=== PATIENT | female | born 1960 | race Caucasian/White ===

== ENCOUNTER → 2020-03-17 10:20 | Outpatient (BNVA) | payer SELFPAY | PROVIDERS: Family Provider Electrodiagnostic Medicine; PCP Electrodiagnostic Medicine; Referring Provider Electrodiagnostic Medicine; Visit Provider Orthopaedic Surgery | DX: M79.643 Pain in unspecified hand (principal) | CPT/HCPCS: 73140 ==

== ENCOUNTER 2020-03-18 06:04 | Day surgery (SDC) | payer SELFPAY ==
[2020-03-18 06:21] VITALS: BP 110/40; PULSE 65; RESP 18; TEMP 36.4; O2SAT 98
[2020-03-18] MEDS: sodium chloride 0.9% 1,000 ML 30 ML IV (06:30)
--- NOTE | 2020-03-18 06:39 | P.ANESASSM_ITS ---
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 Proposed Procedure: Operation Date: 03/18/20 07:00 Proposed Procedures p extensor tendon repair right index finger 62467 S56.429A(Right) - Ravinder Boo MD Social: Social History: No alcohol and No tobacco Exam: Pre-Anes Outpt Exam: alert, oriented x 3, clear to auscultation bilaterally and regular rate & rhythm Airway: Submandibular: WNL Cervical ROM: WNL MP: 2 Dentition: False (lower) and Partials (upper) History/ROS: No significant history except as noted Pulmonary: Pulmonary: None reported CV/HEM: CV/HEM: None reported : : None reported Hepatic: Hepatic: None reported GI: GI: None reported Metabolic: Metabolic: None reported Musc/skel: Musc/skel: None reported Neuropsych: Neuropsych: Anxiety Anesthetic Plan: ASA status: 2 Anesthesia: Anesthesia Evaluation, General and MAC Risk of > 500 ml blood loss (7ml/kg in children): No PFSH Anesthesia PFSH: Surgical History History of dental surgery Hx of carpal tunnel repair Hx of hysterectomy Social History Smoking and tobacco status: never smoked Alcohol intake: never Data Anesthesia Cardiac Studies: No Data to Display
[2020-03-18 08:23] VITALS: BP 112/76; PULSE 52; RESP 18; TEMP 36.4; O2SAT 94
--- NOTE | 2020-03-18 08:24 | P.OP_ITS ---
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 No foreign material or infection was Condition: stable Disposition: same day Procedure: The patient was taken to the operating room and given a [place] block by anesthesia. She was given 2 g of Ancef. A transverse incision was made over the PIP joint and extended distally and proximally from each and creating a Z- type exposure. Flaps of skin and soft tissue were elevated full-thickness bring this down to the extensor ferrera. The extensor tendon was identified just proximal to the joint retracted approximately 5 mm revealing granulation tissue was removed with a scalpel blade bringing his back to healthy tendon. The distal extensor could was identified with blunt dissection. A 3-0 Ethibond suture was passed in a Krak?w fashion through the proximal extensor tendon and ferrera and a second passed through the distal ferrera. These were secured with the finger in extension approximating the proximal tendon and extensor ferrera. The repair was then reinforced with 3-0 Vicryl suture. Skin edges were closed with 3-0 Prolene. Xeroflo gauze 4 x 4's and a radial gutter splint were applied with the wrist in extension and the digits in a functional position. The patient was taken to outpatient in stable condition.
[2020-03-18] MEDS: HYDROcodone-acetaminophen 7.5-325 mg Tablet 1 TAB PO (08:45)
[2020-03-18 08:50] VITALS: BP 116/81; PULSE 61; RESP 18; O2SAT 97
== END 2020-03-18 09:33 | disposition home or self-care (01) ==
PROVIDERS: PCP Electrodiagnostic Medicine; Visit Provider Orthopaedic Surgery
PROC: (CPT 26418; principal; 2020-03-18 07:00)
DX: S66.326A Laceration of extensor muscle, fascia and tendon of right little finger at wrist and hand level, initial encounter (principal); W26.8XXA Contact with other sharp object(s), not elsewhere classified, initial encounter
CPT/HCPCS: 26418; 12345; 96365; J0690; J1885; J2250; J2704; J3010; J3490; J7030

== ENCOUNTER 2021-01-24 12:09 | Outpatient (CLI) | payer SELFPAY ==
--- NOTE | 2021-01-24 12:18 | XRR_ITS ---
PROCEDURE INFORMATION: Exam: XR Chest Exam date and time: 01/24/2021 12:21 PM Age: 60 years old Clinical indication: Pain and injury or trauma; Fall; Blunt trauma (contusions or hematomas); Chest wall pain; Injury date: 1.5 weeks ago; Additional info: Left sided rib pain/pleural effusion/pneumothorax TECHNIQUE: Imaging protocol: XR of the chest. Views: 2 views. COMPARISON: No relevant prior studies available. FINDINGS: Lungs: There is a circumscribed noncalcified density in the left perihilar region measuring 16 mm. This finding appears to be in the posterior aspect of the chest in the paravertebral region. This finding is suspicious for a lung mass lesion. Additional evaluation with CT chest examination with intravenous contrast. Pleural spaces: Moderate volume left lower lobe pleural effusion. No pneumothorax. Heart/Mediastinum: Unremarkable. No cardiomegaly. Bones/joints: Lower dorsal spine levoscoliosis is seen. There is a mildly displaced fracture left 6 posterior rib XR/XR chest 2V* [id number] IMPRESSION: 1. Circumscribed left lung nodule possible mass CT chest recommended 2. Moderate volume left lower lobe pleural effusion 3. Dorsal spine levoscoliosis . 4. Fracture left 6 posterior rib
== END 2021-01-24 12:10 | disposition home or self-care (01) ==
LOC: RAD 12:13
PROVIDERS: PCP Electrodiagnostic Medicine; Visit Provider Electrodiagnostic Medicine
DX: R07.81 Pleurodynia (principal); J93.9 Pneumothorax, unspecified; J94.2 Hemothorax; J90 Pleural effusion, not elsewhere classified; D64.9 Anemia, unspecified; S22.32XA Fracture of one rib, left side, initial encounter for closed fracture; X58.XXXA Exposure to other specified factors, initial encounter
CPT/HCPCS: 71046

== ENCOUNTER → 2021-01-31 10:20 | Outpatient (BNVA) | payer SELFPAY | PROVIDERS: PCP Electrodiagnostic Medicine; Referring Provider Electrodiagnostic Medicine; Visit Provider Orthopaedic Surgery | DX: S32.9XXA Fracture of unspecified parts of lumbosacral spine and pelvis, initial encounter for closed fracture (principal); W19.XXXA Unspecified fall, initial encounter | CPT/HCPCS: 72170 ==

== ENCOUNTER 2021-05-03 10:53 | Outpatient (CLI) | payer SELFPAY ==
--- NOTE | 2021-05-03 10:59 | XRR_ITS ---
PROCEDURE INFORMATION: Exam: XR Chest Exam date and time: 05/03/2021 10:59 AM Age: 60 years old Clinical indication: Condition or disease; Other: Hemothorax; Patient HX: Follow up left ribs fractures, no complaints at this time TECHNIQUE: Imaging protocol: XR of the chest. Views: 2 views. COMPARISON: CR XR chest 2V* [id number] 01/24/2021 12:30 PM FINDINGS: Lungs: Unremarkable. No consolidation. Pleural spaces: Unremarkable. No pleural effusion. No pneumothorax. Heart/Mediastinum: Unremarkable. No cardiomegaly. Bones/joints: There is a healing fracture left 6 posterior rib. This finding shows periosteal new bone formation of increased since prior examination. There is also a healing fracture left 7th posterior rib. No additional rib fractures are documented. XR/XR chest 2V* [id number] IMPRESSION: 1. Healing fracture left 6, and 7th posterior rib. 2. Otherwise No acute findings.
== END 2021-05-03 10:54 | disposition home or self-care (01) ==
LOC: RAD 10:56
PROVIDERS: PCP Electrodiagnostic Medicine; Visit Provider Internal Medicine Critical Care Medicine
DX: J94.2 Hemothorax (principal); S22.42XA Multiple fractures of ribs, left side, initial encounter for closed fracture; X58.XXXA Exposure to other specified factors, initial encounter
CPT/HCPCS: 71046

== ENCOUNTER 2021-05-18 09:49 | Outpatient (CLI) | payer SELFPAY ==
--- NOTE | 2021-05-18 10:00 | CT_ITS ---
WS: [id number] LDCT LUNG CANCER SCREENING HISTORY: Nicotine Dependence TECHNIQUE: Axial imaging performed from the apices to 1 cm below the costophrenic angles. Coronal and sagittal reformats are submitted with axial MIP series. All CT scans at [facility] use at least one of these dose optimization techniques: automated exposure control; mA and/or kV adjustment per patient size (includes targeted exams where dose is matched to clinical indication); or iterativ e reconstruction. DLP: 54.58 mGy.cm DIvol: 1.58 mGy COMPARISON: None available. Diagnostic quality: Satisfactory Lung Nodules: No pulmonary nodule or mass. Pleural thickening in the posterior LEFT thorax from a rem ote healed rib fracture. No endobronchial lesions. Lungs: Mild hyperexpansion. Heart: Normal size heart. No effusion. Other findings: Normal size aorta. Small hiatal hernia. Moderate LEFT curvature lower thoracic spine. Several healed rib fractures in the posterior mid LEFT thorax. CT/CT lung screening [id number] IMPRESSION: LUNG-RADS: 1-Negative FOLLOW UP: 12 Month: Continue annual screening with LDCT OTHER FINDINGS (S MODIFIER): None.
== END 2021-05-18 09:50 | disposition home or self-care (01) ==
PROVIDERS: PCP Electrodiagnostic Medicine; Visit Provider Internal Medicine Critical Care Medicine
DX: F17.210 Nicotine dependence, cigarettes, uncomplicated (principal)
CPT/HCPCS: 71271

== ENCOUNTER 2021-07-05 09:21 | Outpatient (CLI) | payer OTHER, SELFPAY ==
--- NOTE | 2021-07-05 09:28 | MM_ITS ---
WS: [id number] DIAGNOSTIC BILATERAL DIGITAL MAMMOGRAM WITH CAD LEFT breast ultrasound, limited HISTORY: LT BREAST LUMP 1 O'CLOCK COMPARISON: None available. TECHNIQUE: Bilateral craniocaudad, mediolateral oblique, and mediolateral views are submitted. Spot c ompression views RIGHT CC, LEFT CC, LEFT MLO. Computer aided detection utilized. Breast composition: The breasts are extremely dense, which lowers the sensitivity of mammography. Pal pable marker is placed in the upper outer quadrant of the LEFT breast. There is an area of mild archi tectural distortion that is obscured by the dense normal fibroglandular tissue. There are a few addit ional scattered asymmetries which do not persist with additional compression views. LEFT breast ultrasound: Hypoechoic mass with irregular margins at 2:00, 2 cm from the nipple corresponds to the palpable abn ormality. There is mild increased vascularity. Mass measures 1.7 x 1.5 x 1.5 cm. No adenopathy in the axilla of any concerns. MM/[place] [id number] IMPRESSION: BI-RADS: 4-Suspicious Finding-Biopsy Should Be Considered FOLLOW UP: Biopsy Recommended Notified Lena Martines MD at 07/05/2021 10:46 AM. Discussed with
== END 2021-07-05 09:22 | disposition home or self-care (01) ==
LOC: RADSHAW 09:23
PROVIDERS: PCP Electrodiagnostic Medicine; Visit Provider Family Medicine
DX: N63.11 Unspecified lump in the right breast, upper outer quadrant (principal)
CPT/HCPCS: 76642; 77066

== ENCOUNTER 2021-07-21 07:51 | Outpatient (CLI) | payer MEDICAID, SELFPAY ==
--- NOTE | 2021-07-21 08:02 | US_ITS ---
WS: [id number] ULTRASOUND-GUIDED LEFT BREAST BIOPSY CLINICAL INFORMATION: L BREAST MASS COMPARISON: None. FINDINGS: The procedure including risks, benefits, and complications were discussed with the patient who agreed to proceed. Using sterile technique patient was prepped and draped in the usual sterile fashion. Aft er 1% lidocaine utilizing real-time ultrasound guidance 6 14-gauge cores were obtained of the left br east lesion at the 2 o'clock position. Subsequently a titanium clip was placed in the biopsy cavity. No immediate complications. Pathology demonstrates A. Breast, left breast lesion at 2:00 , ultrasound-guided biopsy: -Invasive ductal carcinoma. -Carranza Flower grade 1, score 3 (low grade). -No lymphovascular invasion identified. -No ductal carcinoma in situ (DCIS) identified. -Breast profile has been performed and will be reported. US/[place] [id number] IMPRESSION: 1. Uncomplicated ultrasound-guided left breast biopsy. 2. The pathology demonstrates invasive ductal carcinoma. 3. Recommend breast surgery consultation. Notified Lena Martines MD at 07/25/2021 1400 BI-RADS: 6-Known Biopsy-Proven Malignancy FOLLOW UP: See Report
[2021-07-31 11:01] LABS: Miscellaneous Test See Scanned Lab Rpt
== END 2021-07-21 07:52 | disposition home or self-care (01) ==
LOC: RAD 07:55
PROVIDERS: PCP Electrodiagnostic Medicine; Visit Provider Family Medicine
DX: C50.412 Malignant neoplasm of upper-outer quadrant of left female breast (principal)
CPT/HCPCS: 19083; 88305; 88361; 88367; 88374

== ENCOUNTER 2021-08-03 13:21 | Outpatient (CLI) | payer MEDICAID, SELFPAY ==
--- NOTE | 2021-08-03 15:31 | N.ONRAD NP_ITS ---
Radiation Oncology Consultation Patient Name: Virginia Walsh Date of : 1960 Date of Service: 08/03/2021 Attending Physician: Manolo Westbrook M.D. Virginia Walsh was seen in consultation this afternoon at the request of Nigel Chew M.D. for consideration of adjuvant radiotherapy for the management of a recently diagnosed early stage breast cancer. She was evaluated by her primary care physician for a palpable left breast mass. A diagnostic mammography (personally reviewed in [facility]) ordered on July 05, 2021 described an area of architectural distortion within the upper-outer quadrant of the left breast. Ultrasonography confirmed a hypoechoic left breast mass with irregular margins measuring 1.7 cm x 1.5 cm x 1.5 cm at the 2 o'clock position that was 2 cm from the nipple. Axillary lymphadenopathy was not reported. An ultrasound-guided left breast biopsy performed on July 21, 2021 diagnosed a grade 1 invasive ductal carcinoma. The breast cancer prognostic profile identified estrogen receptor positivity (99%), progesterone receptor positivity (99%), and HER-2 negativity (1+; ratio 1.1). The patient was referred for a discussion regarding adjuvant breast radiotherapy. I discussed the [place] [employer] on Cancer Staging and specifically the patient's clinical stage IA (T1cN0) breast cancer, I also reviewed the National Comprehensive Cancer Network Guidelines endorsing adjuvant radiotherapy and I summarized the classic study by the NSABP comparing mastectomy, lumpectomy, and lumpectomy with radiotherapy in addition to the Early Breast Cancer Trialist Collaborative Group meta-analysis that established this treatment standard. She is aware that the addition of radiotherapy to lumpectomy provides improvement in local control and overall survival. Following surgery, I would recommend a three week course of hypofractionated radiotherapy to the breast. Prior to beginning treatment, a computed tomographic radiotherapy planning scan in the treatment position will be acquired to identify the clinical tumor volume. The potential toxicities of adjuvant breast radiotherapy were recounted. The patient has verbalized understanding and would like to proceed as recommended. The patient's medical treatment was discussed with Nigel Chew M.D. Signed by: Dr. Manolo Westbrook 08/03/2021 3:29:48 PM
== END 2021-08-03 13:22 | disposition home or self-care (01) ==
PROVIDERS: PCP Electrodiagnostic Medicine; Visit Provider Radiology Radiation Oncology
DX: C50.412 Malignant neoplasm of upper-outer quadrant of left female breast (principal); Z71.89 Other specified counseling
CPT/HCPCS: 99205

== ENCOUNTER → 2021-08-30 10:24 | Outpatient (BNVA) | payer MEDICAID, SELFPAY | PROVIDERS: PCP Electrodiagnostic Medicine; Visit Provider Surgery | DX: C50.912 Malignant neoplasm of unspecified site of left female breast (principal) | CPT/HCPCS: 87635 ==

== ENCOUNTER 2021-09-05 08:39 | Day surgery (SDC) | payer MEDICAID, SELFPAY ==
[2021-08-21 15:48] LABS: Adenovirus Not Detected (NOT DETECT); Chlamydia Pneumoniae Not Detected (NOT DETECT); Coronavirus 229E,HKU1,NL63,OC4 Not Detected (NOT DETECT); Human Metapneumovirus Not Detected (NOT DETECT); Human Rhinovirus/Enterovirus Not Detected (NOT DETECT); Influenza A Not Detected (NOT DETECT); Influenza A H1 Not Detected (NOT DETECT); Influenza A H1-2009 Not Detected (NOT DETECT); Influenza A H3 Not Detected (NOT DETECT); Influenza B Not Detected (NOT DETECT); Mycoplasma Pneumoniae Not Detected (NOT DETECT); Parainfluenza Virus Type 1 Not Detected (NOT DETECT); Parainfluenza Virus Type 2 Not Detected (NOT DETECT); Parainfluenza Virus Type 3 Not Detected (NOT DETECT); Parainfluenza Virus Type 4 Not Detected (NOT DETECT); Respiratory Syncytial Virus A Not Detected (NOT DETECT); Respiratory Syncytial Virus B Not Detected (NOT DETECT); SARS-COV-2 Not Detected (NOT DETECT)
[2021-09-04 10:03] VITALS: BMI 20.9
[2021-09-05] VITALS (8 sets, daily range): BP systolic 110–134; BP diastolic 53–83; PULSE 52–63; RESP 16–18; TEMP 36.1–36.9; O2SAT 96–100
--- NOTE | 2021-09-05 | US_ITS ---
WS: [id number] ULTRASOUND-GUIDED LEFT BREAST NEEDLE LOCALIZATION HISTORY: Known LEFT breast neoplasm surgical removal. Procedure, risks and complications were explained to the patient. Consent is obtained. Skin is cleansed with ChloraPrep and anesthetized with 1% buffered lidocaine. Needle and guidewire pl aced to the area of concern with no complications. Needle and wire are placed in the LEFT breast saundra g the 2:00 axis through the mass previously biopsied. Ultrasound guidance performed during the needle localization. Guidewire is left within the lesion. Guidewire secured and no complications encountere d. Patient is being transported to the OR suite. Specimen radiograph is also reviewed. The mass and wire are noted. RECOMMENDATIONS: Follow-up with oncology and Dr. Chew. US/US breast surgical specimen IMPRESSION: 1. Uncomplicated LEFT breast wire needle localization of the previously biopsi ed mass along the 2:00 axis. 2. The mass is contained within the surgical specimen. PATHOLOGY RESULTS: Invasive ductal carcinoma. No lymphovascular invasion identi fied. Breast profile to be submitted at a later date.
--- NOTE | 2021-09-05 09:13 | NM_ITS ---
WS: [id number] NUCLEAR MEDICINE SENTINEL LYMPH NODE IMAGING HISTORY: left breast lump COMPARISON: Prior LEFT breast imaging studies reviewed. TECHNIQUE: The patient was injected with 1.06 mCi of Technetium 99 ultra filtered sulfur colloid. Inj ection is intradermal in a periareolar location. Four aliquots are used. Subcutaneous lidocaine is used prior to the injection of the radionuclide. No complications. NM/NM sentinel node inject [id number] IMPRESSION: Uncomplicated LEFT breast sentinel node injection.
--- NOTE | 2021-09-05 09:13 | US_ITS ---
WS: [id number] ULTRASOUND-GUIDED LEFT BREAST NEEDLE LOCALIZATION HISTORY: Known LEFT breast neoplasm surgical removal. Procedure, risks and complications were explained to the patient. Consent is obtained. Skin is cleansed with ChloraPrep and anesthetized with 1% buffered lidocaine. Needle and guidewire pl aced to the area of concern with no complications. Needle and wire are placed in the LEFT breast saundra g the 2:00 axis through the mass previously biopsied. Ultrasound guidance performed during the needle localization. Guidewire is left within the lesion. Guidewire secured and no complications encountere d. Patient is being transported to the OR suite. Specimen radiograph is also reviewed. The mass and wire are noted. RECOMMENDATIONS: Follow-up with oncology and Dr. Chew. US/[place] [id number] IMPRESSION: 1. Uncomplicated LEFT breast wire needle localization of the previously biopsi ed mass along the 2:00 axis. 2. The mass is contained within the surgical specimen. PATHOLOGY RESULTS: Invasive ductal carcinoma. No lymphovascular invasion identi fied. Breast profile to be submitted at a later date.
--- NOTE | 2021-09-05 10:51 | ANES.PREANE2 ---
Pre-Anesthetic Assessment Pre-Anesthetic Assessment: Height/Weight: Height 1.6 m Weight 53.524 kg Temp Pulse Resp BP Pulse Ox 97 F L 63 18 116/83 98 09/05/21 08:53 09/05/21 08:53 09/05/21 08:53 09/05/21 08:53 09/05/21 08:53 Preop Diagnosis: Left breast cancer Proposed Procedure: Operation Date: 09/05/21 12:30 Proposed Procedures p Breast Biopsy Needle Localization [id number] C50.912(Left) - Nigel Chew MD s Sentinal Lymph Node Biopsy(Left) - Nigel Chew MD s Lumpectomy(Left) - Nigel Chew MD Familial anesthetic complications: none Was Beta Dorie taken within 24 hours: N/A Was Clonidine taken within 24 hours: N/A Last intake: Intake Last Liquid Date 09/05/21 Last Liquid Time 05:00 Last Solid Date 09/04/21 Last Solid Time 20:00 Social: Social History: No alcohol and No tobacco Comment: former smoker, currently vape Exam: Pre-Anes Outpt Exam: alert, oriented x 3, clear to auscultation bilaterally and regular rate & rhythm Airway: MP: 2 Dentition: False Pulmonary: Comments: hx traumatic hemothorax, currently with head cold denies fever, fatigue, malaise, n/v/d, purulent cough, etc. Negative for Covid Anesthetic Plan: ASA status: 1 Anesthesia: MAC Risk of > 500 ml blood loss (7ml/kg in children): No PFSH Anesthesia PFSH: Surgical History History of colonoscopy 2019 History of dental surgery Hx of carpal tunnel repair Hx of hysterectomy Social History Smoking risk assessment/counseling performed?: Yes Alcohol intake: never Caregiver/support person: No Lives independently: Yes Household members: none Marital status: Legally Current occupational status: retired History of recent travel: No Current gender identity: Female Data Anesthesia Cardiac Studies: No Data to Display
--- NOTE | 2021-09-05 12:27 | P.HP_ITS ---
Same Day Surgery H&P Indication for Procedure/HPI DATE OF PROCEDURE: September 05, 2021 CHIEF COMPLAINT/INDICATIONFOR SURGICAL PROCEDURE: breast lumpectmy with SLNB PREOP DIAGNOSIS: Left breast cancer PLANNED PROCEDURE: Operation Date: 09/05/21 12:30 Proposed Procedures p Breast Biopsy Needle Localization [id number] C50.912(Left) - Nigel Chew MD s Sentinal Lymph Node Biopsy(Left) - MD niyah Banegas Lumpectomy(Left) - Nigel Chew MD Medications/Allergies* Home Medications Medication Instructions Recorded Confirmed Type clonazepam 0.5 mg PO DAILY 03/18/20 09/05/21 History paroxetine HCl 20 mg PO DAILY 03/18/20 09/05/21 History Allergies/Adverse Reactions Allergy/AdvReac Type Severity Reaction Status Date / Time No Known Allergies Allergy Verified 09/05/21 08:47 Pertinent History/Comorbid Conditions* Surgical History (Updated 07/28/21 @ 14:14 by Nigel Chew MD) History of colonoscopy 2018 History of dental surgery Hx of carpal tunnel repair Hx of hysterectomy Social History Smoking risk assessment/counseling performed?: Yes Alcohol intake: never Caregiver/support person: No Lives independently: Yes Household members: none Marital status: Legally Current occupational status: retired History of recent travel: No Current gender identity: Female Pertinent Exam Findings alert, oriented x 3, regular rate & rhythm and operative site marked Recommendations Surgery/Procedure today Coding Level of Care Code Acute Ambulatory Services Representative for Lottie Ruiz
[2021-09-05] MEDS: isosulfan blue 10 mg/mL SDV 5mL SUBCUT (13:13)
[2021-09-05] MEDS: lidocaine 1% INJ 20 mL INJECTION (13:13)
--- NOTE | 2021-09-05 14:22 | P.OP_ITS ---
Operative Report Date of procedure: September 05, 2021 Pre-op Diagnosis: Invasive ductal carcinoma left breast at 2 o'clock position Post-op diagnosis: same Procedure Done: 1. Wire localization lumpectomy with shave margins left breast 2. Left axillary sentinel lymph node biopsy 3. Injection of 1% Lymphazurin Specimens removed/disposition: 1. Left breast mass 2 o'clock position, short s titch superior, long stitch lateral, white stitch inferior 2. Shave margins of the lumpectomy cavity, outer edge inked from the superior, inferior, medial, lateral and posterior aspect 3. Left axillary sentinel lymph node biopsy Surgeon: Nigel Chew Anesthesia: MAC Condition: stable Disposition: PACU Procedure: The wire localization of the mammographic abnormality was performed by the radiologist under ultrasound guidance and the patient was transferred to operating room and placed under MAC after IV antibiotic had been administered. The left breast was prepped and draped in a manner . A curvilinear incision was made over the areolar margin at 2'o clock and the lateral skin flap was raised using electrocautery passing over the left breast mass to identify the localization wire. Using electrocautery the mass was dissected free from the surrounding subcutaneous tissue and medially and inferiorly from the breast tissue. There was some bleeding which was finally controlled with cautery and Surgicel. Using 2-0 silk suture, short stitch was placed superiorly and a long stitch was placed laterally and 3-0 Vicryl white suture was placed inferiorly. Shave margins were obtained from the superior, inferior, medial, lateral and posterior aspect of the lumpectomy cavity and the outer edge was inked. The edges of the lumpectomy cavity was marked with medium clips for future radiation planning. The wound was irrigated with saline, hemostasis ensured with electrocautery and subcutaneous tissues approximated using 3-0 running Vicryl suture and skin was closed using running subcuticular 4-0 Monocryl sutures and Dermabond. The lumpectomy specimens were sent to mammography to obtain radiological confirmation of complete excision of the mammographic abnormality A technetium sulfur colloid had been injected previously by the radiologist in the periareolar area. 2 mL of 1% Lymphazurin was injected in the subareolar location. The breast was massaged for 5 minutes and a 2 cm incision was made in the left axilla at the edge of the hairline just posterior to the pectoralis muscle. The subcutaneous tissue and clavipectoral fascia was divided with electrocautery and gentle dissection revealed lymphatics with stained lymph nodes which were radioactive. Using electrocautery the lymph nodes were dissected free and the vascular pedicle was clipped with medium clips. Examination of the axilla did not reveal any other sustained or radioactive lymph nodes. The clavipectoral and subcutaneous tissue was approximated using running 3-0 Vicryl suture and skin was closed using running subcuticular 4-0 Monocryl suture and Dermabond. Fluffs and support bra was placed and the patient was transferred to recovery room in stable condition.
== END 2021-09-05 15:39 | disposition home or self-care (01) ==
PROVIDERS: PCP Electrodiagnostic Medicine; Visit Provider Surgery
PROC: (CPT 19301; principal; 2021-09-05 12:30)
PROC: (CPT 19301; 2021-09-05 12:30)
PROC: (CPT 19301; 2021-09-05 12:30)
DX: C50.912 Malignant neoplasm of unspecified site of left female breast (principal)
CPT/HCPCS: 19301; 38500; 19285; 38792; 87635; 88307; A9541; C1889; J0690; J2704; J3010; J3490; Q9968

== ENCOUNTER 2021-10-05 14:36 | Outpatient (CLI) | payer MEDICAID, SELFPAY ==
[2021-10-05 16:09] LABS: Basophils % 0.6 %; Eosinophils # 0.3 10^3/uL (0.0-0.8); Eosinophils % 4.4 %; Hematocrit 43.6 % (37.0-47.0); Hemoglobin 14.1 g/dL (11.5-15.3); Lymphocytes # 1.7 10^3/uL (0.8-4.8); Lymphocytes % 25.2 %; Mean Corpuscular HGB Conc 32.3 g/dL (30.0-36.0); Mean Corpuscular Hemoglobin 30.3 pg (28.0-34.0); Mean Corpuscular Volume 93.6 fl (81-99); Mean Platelet Volume 10.4 fL (7.4-10.4); Monocytes # 0.6 10^3/uL (0.2-0.9); Monocytes % 9.2 %; Neutrophils # 4.02 10^3/uL (1.8-7.7); Neutrophils % 60.4 %; Nucleated Red Blood Cells % 0 %; Platelet Count 233 10^3/cmm (130-400); Red Blood Count 4.66 10^6/uL (4.1-5.3); Red Cell Distribution Width 12.3 % (12.1-15.1); White Blood Count 6.6 10^3/uL (4.0-10.0)
[2021-10-05 16:38] LABS: Follicle Stimulating Hormone 107.8 mIU/mL
[2021-10-05 16:52] LABS: 25 Hydroxy Vitamin D 34 ng/mL (30-100); Alanine Aminotransferase 33 U/L (0-33); Albumin Level 4.5 g/dL (3.5-5.2); Alkaline Phosphatase 92 IU/L (35-105); Anion Gap 9.9 (5-19); Aspartate Amino Transferase 27 U/L (0-32); Blood Urea Nitrogen 18 mg/dL (6-20); Calcium 9.3 mg/dL (8.5-10.5); Carbon Dioxide 29 mmol/L (22-29); Chloride 105 mmol/L (98-107); Globulin 1.9 g/dL (1.3-4.6); Glomerular Filtration Rate 126.3 mL/min (90-130); Glucose 99 mg/dL (65-115); Osmolality Calculated 290 mOsm/kg (285-295); Potassium 4.9 mmol/L (3.5-5.1); Sodium 139 mmol/L (136-145); Total Bilirubin 0.2 mg/dL (0.15-1.2); Total Protein 6.4 g/dL (6.6-8.7)
--- NOTE | 2021-10-07 09:47 | ONC CON_ITS ---
Dr. Madden New Patient Note Patient: Virginia Walsh Unit #: [id number]: 1960 Dicatated By: Neal Madden M.D.Date of Visit: Oct 05, 2021 Onc MED New Patient/Consult Referring Physician: Dr. GOLDEN JOSEPH M.D. Chief Complaint: Breast cancer. History of Present Illness: This is a 61-year-old woman with grade 1 invasive ductal carcinoma of the left breast, Stage IA (T1c, pN1mi, M0), ER/SD positive, HER-2/deana negative, and Oncotype low risk with recurrence score 6. She had presented with a palpable lump in the left breast. Her diagnostic mammogram on 07/05/2021 showed an area of mild architectural distortion in the upper outer quadrant of the left breast. It was noted to be obscured by the dense normal fibroglandular tissue. Ultrasound showed a hypoechoic mass with irregular margins at the 2 o'clock position, 2 cm from the nipple. It measured 1.7 x 1.5 x 1.5 cm and it showed mild increased vascularity. The findings were BI-RADS 4, suspicious. On 07/21/2021 she underwent ultrasound directed biopsy of the mass. Pathology showed grade 1 invasive ductal carcinoma. The breast prognostic profile showed ER positive at 99% and SD positive at 99%. The tumor was negative for overexpression of HER-2/deana, 1+ by IHC and amplification ratio by FISH of 1.1 with 2.6 HER-2 copies/cell. The Ki-67 was favorable at 2%. On 09/05/2021 she underwent left breast lumpectomy with axillary sentinel lymph node biopsy. Pathology showed grade 1 invasive ductal carcinoma measuring 19 mm in greatest dimension. All margins were negative with closest being the inferior margin at 2.5 mm. There was microscopic involvement in 1/5 lymph nodes, measuring less than 2 mm. She had subsequent evaluation with Oncotype DX which showed a recurrence score of 6 corresponding to an 11% risk of distant recurrence at 9 years with adjuvant endocrine therapy. There was no predicted benefit with adjuvant chemotherapy. She had radiation oncology consultation with Dr. Westbrook following the initial biopsy in July. She has seen now in regard to further management of the breast cancer. She has been feeling good generally. Her energy is pretty good and she has normal activity other than being a little restricted following her recent surgery. Her ECOG score is 0. She has good appetite and her weight is stable. She has not had fever or night sweats. She has had hot flashes ever since her hysterectomy at age 32. The procedure did not include oophorectomy. The hot flashes have been pretty well controlled with clonazepam. She had her first at age 21. She had 5 years of oral contraceptive therapy, but she received no hormone replacement therapy. She has not had sore mouth or throat. She does not complain of cough, and she has not been having shortness of breath or chest pain. She has no GI/ complaints other than some chronic constipation. She has had ongoing problems with pain following an injury last January in which she sustained fractures to her pelvis and left rib cage. She says she gets her share of headaches. She has no focal neurologic symptoms. She does take paroxetine for mood swings. Past Medical History: Her medical history is otherwise significant for depression. Past Surgical History: She underwent ultrasound-guided biopsy of the left breast on 07/21/2021 and she underwent left breast lumpectomy with axillary sentinel lymph node biopsy on 09/05/2021. Her other surgical/procedural history includes carpal tunnel release bilaterally, colonoscopy in 2018, and hysterectomy in 1992. Medications: clonazePAM 1 (0.5 mg) Tablet Oral daily, PARoxetine HCl 1 (20 mg) Tablet Oral daily Allergies: No Known Allergies. Social History: Ms. Walsh is legally . She has a history of smoking 1 pack of cigarettes daily for approximately 30 years. She quit smoking in 2015, but she has since then continued vaping. She does not drink alcohol. Family History: Both parents are living, father at age 83 and mother at age 79. She had one sibling, a brother who in a plane crash at age 40. Her paternal grandmother and grandfather both had breast cancer, and a maternal aunt had breast cancer. Review Of Symptoms: Constitutional - She has pretty good energy. She has normal activity other than has been restricted following her recent surgery. Her appetite is good and her weight has been stable. She has not had fever or night sweats. She has had hot flashes ever since her hysterectomy. They have been controlled pretty well with clonazepam. ECOG score is 0, Eyes - No change in vision, ENMT - No hearing loss or tinnitus. No sinus congestion/drainage. No mouth sores. No sore throat or difficulty swallowing, Hematologic/Lymphatic - No abnormal bruising or bleeding, Respiratory - No shortness of breath. No cough. No pleuritic pain or hemoptysis, Cardiovascular - No angina pain. No palpitations, Gastrointestinal - No nausea or vomiting. No heartburn or acid reflux. She has chronic constipation. No blood in the stool or black stools, Genitourinary (F) - No dysuria or hematuria. No urinary frequency. No urgency or incontinence, Musculoskeletal - She complains that she hurts a lot, mainly in the pelvis and hip area following an injury last January in which she sustained a fracture to her pelvis and left rib cage, Integumentary - No skin rash or other skin changes, Neurologic - She says she gets her share of headaches. No dizziness. No numbness or tingling. No other focal neurologic symptoms, Psychiatric - She takes paroxetine for mood swings. No insomnia. Vital Signs: Performed on Oct 05, 2021 15:04: 2, 0, 21.06, 1.61 sq.m, 64.50 in, 95 % (LOW), 65 /min, 18 /min, 114/76 mm(hg), 98.9 F (HIGH), and 124.6 lbs (HIGH). Physical Examination: Constitutional - She appears to be in good general health, Eyes - Sclerae nonicteric. Conjunctivae clear, ENMT - No lesions noted in the oral cavity, Neck - No mass or thyromegaly, Hematologic/Lymphatic - No cervical, clavicular, or axillary adenopathy, Respiratory - Lungs are clear with good air movement bilaterally, Cardiovascular - Heart rhythm is regular. There is no murmur, gallop, or rub noted, Breasts - The right breast shows no mass. There is an area of nodularity/induration at the lumpectomy site in the upper outer quadrant of the left breast. There is no axillary adenopathy noted, Abdomen - Soft and non-tender. Liver and spleen are not enlarged. There is no abdominal mass or ascites noted and there is no inguinal adenopathy, Back/Spine - No spine or CVA tenderness noted, Extremities - No edema. Dorsalis pedis pulses are palpable bilaterally, Integumentary - No rashes. No suspicious skin lesions noted, Neurologic - No focal neurologic deficits noted. Problem List: 1. Grade 1 invasive ductal carcinoma of the left breast, stage IA (T1c, pN1mi, M0), ER/SD positive, HER-2/deana negative, and Oncotype low risk with recurrence score 6. 2. Depression. Problems Addressed with this Encounter and Plan: Patient with grade 1 invasive ductal carcinoma of the left breast, stage IA (T1c, pN1mi, M0), ER/SD positive, HER-2/deana negative, and Oncotype low risk with recurrence score 6. She underwent ultrasound-guided biopsy of the left breast on 07/21/2021 followed by left breast lumpectomy and axillary sentinel lymph node biopsy on 09/05/2021. I reviewed the pathology with the patient, and we discussed the clinical implications. With a T1c primary tumor and microscopic lymph node involvement and with positive hormone receptors, she is recommended to undergo adjuvant endocrine therapy. With low risk Oncotype, there is no predicted benefit with adjuvant chemotherapy. She is presumed to be postmenopausal, but I will want laboratory verification of that. She can then begin adjuvant hormonal therapy with anastrozole 1 mg daily. I reviewed anticipated side effects, the most significant of which can be osteoporosis and/or joint pain. Less common side effects may include hot flashes and fatigue, among others. She will need a baseline DEXA scan and I also will include baseline CBC, comprehensive metabolic profile, and 25-hydroxy vitamin D level with her laboratory studies. In the meantime, she is advised that she also does need to undergo radiation to complete her primary treatment, and she also now will be scheduled for follow-up with radiation oncology. I will tentatively plan a follow-up visit in 3 months. Signed By: Neal Madden M.D. <<Signature on File>>
== END 2021-10-05 14:37 | disposition home or self-care (01) ==
LOC: ONCMED 14:39
PROVIDERS: PCP Electrodiagnostic Medicine; Visit Provider Internal Medicine Medical Oncology
DX: C50.412 Malignant neoplasm of upper-outer quadrant of left female breast (principal); Z17.0 Estrogen receptor positive status [ER+]; F32.9 Major depressive disorder, single episode, unspecified; Z79.899 Other long term (current) drug therapy; Z78.0 Asymptomatic menopausal state; Z79.811 Long term (current) use of aromatase inhibitors
CPT/HCPCS: 36415; 80053; 82306; 82670; 83001; 83002; 85025; 99205

== ENCOUNTER 2021-10-09 14:43 | Outpatient (CLI) | payer MEDICAID, SELFPAY ==
--- NOTE | 2021-10-09 14:50 | XR_ITS ---
WS: [id number] DEXA (DUAL ENERGY X-RAY ABSORPTIOMETRY) Bone mineral density was performed using a [employer] machine. HISTORY: PREMATURE MENOPAUSE COMPARISON: None available. Lumbar spine BMD (L1-L4): 1.016 g/cm2 T score: -1.4 Z score: 0.1 Total hip BMD: Left: 0.702 g/cm2. T score: -2.4 Z score: -1.3 Right: 0.767 g/cm2. T score: -1.9 Z score: -0.8 10 year probability of a major osteoporotic fracture is 17%. Mild scoliosis and curvature of the lumbar spine. XR/XR DEXA axial skeleton* 22735 IMPRESSION: OSTEOPENIA based upon the WHO classification for females.
== END 2021-10-09 14:44 | disposition home or self-care (01) ==
PROVIDERS: PCP Electrodiagnostic Medicine; Visit Provider Internal Medicine Medical Oncology
DX: Z78.0 Asymptomatic menopausal state (principal); M85.80 Other specified disorders of bone density and structure, unspecified site
CPT/HCPCS: 77080

== ENCOUNTER 2021-10-16 07:23 | Outpatient (RCR) | payer MEDICAID, SELFPAY ==
--- NOTE | 2021-10-11 11:04 | ONCRAD EPV_ITS ---
Radiation Oncology Follow-Up Note Patient Name: Virginia Walsh Date of : 1960 Date of Service: 10/11/2021 Attending Physician: Manolo Westbrook M.D. Virginia Walsh was seen this morning to review the surgical pathology from a recently performed partial mastectomy. She was evaluated by her primary care physician for a palpable left breast mass. A diagnostic mammography (personally reviewed in [facility]) ordered on July 05, 2021 described an area of architectural distortion within the upper-outer quadrant of the left breast. Ultrasonography confirmed a hypoechoic left breast mass with irregular margins measuring 1.7 cm x 1.5 cm x 1.5 cm at the 2 o'clock position that was 2 cm from the nipple. Axillary lymphadenopathy was not reported. An ultrasound-guided left breast biopsy performed on July 21, 2021 diagnosed a grade 1 invasive ductal carcinoma. The breast cancer prognostic profile identified estrogen receptor positivity (99%), progesterone receptor positivity (99%), and HER-2 negativity (1+; ratio 1.1). A wire localization lumpectomy of the left breast with sentinel lymph node biopsy was performed on September 05, 2021 by Nigel Chew M.D. the pathology report described 1.9 cm, grade 1, invasive ductal carcinoma. All margins were uninvolved by malignancy. A total of 5 sentinel lymph nodes were harvested with one lymph node harboring micrometastatic disease. The Oncotype DX Breast Recurrence Score was 6. I discussed the patient's AJCC pathological stage IA ([id number]) specific to her breast cancer diagnosis and The National Comprehensive Cancer Network Guidelines recommending adjuvant radiotherapy. I also reviewed the classic studies by the [place] [facility] and the Early Breast Cancer Trialists??? Collaborative Group. She is aware that these studies demonstrated an overall survival improvement in patients treated with post-mastectomy radiotherapy with extrapolation to patients electing lumpectomy. I would endorse a five week course of adjuvant left breast and regional lymph node radiotherapy. A computed tomographic radiotherapy planning scan with contrast in the treatment position will be acquired to identify the clinical tumor volumes prior to beginning treatment. The potential toxicities of breast and regional lymph node irradiation were canvassed. The patient has verbalized understanding would like to proceed as recommended. The patient's medical treatment plan was discussed with Neal Madden M.D. Signed by: Dr. Manolo Westbrook 10/11/2021 11:02:13 AM
--- NOTE | 2021-10-16 | CT_ITS ---
Radiation Therapy Planning CT images; total exam DLP: 257.63 mGy-cm MTDD
[2021-10-16] MEDS: iodixanol 320 mg/mL 100mL Btl (RAD THERAPY ONLY) IV (13:14)
== END 2021-10-16 23:59 | disposition home or self-care (01) ==
LOC: ONCMED 07:23
PROVIDERS: PCP Electrodiagnostic Medicine; Visit Provider Radiology Radiation Oncology
DX: Z51.0 Encounter for antineoplastic radiation therapy (principal); C50.412 Malignant neoplasm of upper-outer quadrant of left female breast; Z17.0 Estrogen receptor positive status [ER+]; Z79.899 Other long term (current) drug therapy
CPT/HCPCS: 77290; 77334; 99215; Q9967

== ENCOUNTER 2021-11-16 09:51 | Outpatient (RCR) | payer MEDICAID, SELFPAY ==
--- NOTE | 2021-10-23 13:42 | ONCRAD TMN_ITS ---
Radiation Oncology Treatment Management Note Patient Name: Virginia Walsh Date of : 1960 Date of Service: 10/23/2021 Attending Physician: Manolo Westbrook M.D. Virginia Walsh is a 61 year-old white female diagnosed with a pathological stage IA ([id number]) invasive, ductal carcinoma of the left breast. She was evaluated by her primary care physician for a palpable left breast mass. A diagnostic mammography (personally reviewed in [facility]) ordered on July 05, 2021 described an area of architectural distortion within the upper-outer quadrant of the left breast. Ultrasonography confirmed a hypoechoic left breast mass with irregular margins measuring 1.7 cm x 1.5 cm x 1.5 cm at the 2 o'clock position that was 2 cm from the nipple. Axillary lymphadenopathy was not reported. An ultrasound-guided left breast biopsy performed on July 21, 2021 diagnosed a grade 1 invasive ductal carcinoma. The breast cancer prognostic profile identified estrogen receptor positivity (99%), progesterone receptor positivity (99%), and HER-2 negativity (1+; ratio 1.1). A wire localization lumpectomy of the left breast with sentinel lymph node biopsy was performed on September 05, 2021 by Nigel Chew M.D. the pathology report described 1.9 cm, grade 1, invasive ductal carcinoma. All margins were uninvolved by malignancy. A total of 5 sentinel lymph nodes were harvested with one lymph node harboring micrometastatic disease. The Oncotype DX Breast Recurrence Score was 6. She has received 8 Gy of a prescribed 50 Gy delivered with a 3D conformal radiotherapy plan utilizing opposed tangential portal zarate matched to supraclavicular fossa and PAB ports. Upon review of systems, she denied breast complaints to radiotherapy. On physical examination, the patient weighed 125 lbs. Her temperature was 98.3 ???F and the blood pressure was 131/67 mmHg. Her pulse was 65 bpm and her respiratory rate was 16. There was no erythema within the treatment zarate of the left breast. Continue left breast and regional lymph node irradiation as prescribed. Signed by: Dr. Manolo Westbrook 10/23/2021 1:41:12 PM
--- NOTE | 2021-10-30 10:42 | ONCRAD TMN_ITS ---
Radiation Oncology Weekly Treatment Management Patient: Nico Gutierrez MR#: [id number] : 1960> Attending Physician: Dr. Francesco Albarran Date of Service: 10/30/2021 Referring Physician(s) : Nigel Chew Diagnosis: C50.412 - Malignant neoplasm of upper-outer quadrant of left female breast, Diagnosed 07/21/2021 (Active) Stage IA, T1c, pN1mi, M0, G1, HER2 Neg, ER Pos, ME Radiotherapy to date: Course: Breast 2021Treatment Site: SCL Fossa, Ref. ID: [id number], Energy: 15X, Dose/Fx (cGy): 200, #Fx: 25, Dose Correction (cGy): 0, Total Dose (cGy): 1,800, Start Date: 10/18/2021, Elapsed Days: 12 Breast 2021, Treatment Site: Breast Ca, Ref. ID: [id number], Energy: 15X/6X, Dose/Fx (cGy): 200, #Fx: , Dose Correction (cGy): 0, Total Dose (cGy): 1,800, Start Date: 10/18/2021, Elapsed Days: 12 Reason for visit: The patient is being seen today as part of their regularly scheduled weekly on treatment visits to assess for acute toxicities from radiotherapy. Review of Systems: No complaints at all. Normal performance status. Normal appetite. No complaints regarding the left arm or breast. Vital Signs: Performed on 10/30/2021 10:30 AM BMI - 21.429 kg/m2, Height - 64.5 in, Weight - 126.8 lbs, Temperature - 98.2 f, Pulse - 78 /min, Respiration - 20 /min, O2 Sat - 99 %, Pain - 0, Fatigue - 0 and BP - 112/ 75 mm(hg). Physical Exam: Alert, oriented, no acute distress. Good range of motion in the left arm. No lymphedema. The breast is essentially normal in appearance. The lumpectomy scar is well-healed and there is no induration, tenderness, or erythema. Axillary scar well-healed. No tenderness. No lymphadenopathy. Imaging: Radiation therapy imaging related to accurate target localization (i.e. KV, MV and CBCT) was reviewed. Appropriate changes, if any, were made to ensure treatment accuracy. Plan: Continue radiation according to treatment plan. Signed by: Dr. Francesco Albarran 10/30/2021 10:41:26 AM
--- NOTE | 2021-11-07 10:38 | ONCRAD TMN_ITS ---
Radiation Oncology Treatment Management Note Patient Name: Virginia Walsh Date of : 1960 Date of Service: 11/07/2021 Attending Physician: Manolo Westbrook M.D. Virginia Walsh is a 61 year-old white female diagnosed with a pathological stage IA ([id number]) invasive, ductal carcinoma of the left breast. She was evaluated by her primary care physician for a palpable left breast mass. A diagnostic mammography (personally reviewed in [facility]) ordered on July 05, 2021 described an area of architectural distortion within the upper-outer quadrant of the left breast. Ultrasonography confirmed a hypoechoic left breast mass with irregular margins measuring 1.7 cm x 1.5 cm x 1.5 cm at the 2 o'clock position that was 2 cm from the nipple. Axillary lymphadenopathy was not reported. An ultrasound-guided left breast biopsy performed on July 21, 2021 diagnosed a grade 1 invasive ductal carcinoma. The breast cancer prognostic profile identified estrogen receptor positivity (99%), progesterone receptor positivity (99%), and HER-2 negativity (1+; ratio 1.1). A wire localization lumpectomy of the left breast with sentinel lymph node biopsy was performed on September 05, 2021 by Nigel Chew M.D. the pathology report described 1.9 cm, grade 1, invasive ductal carcinoma. All margins were uninvolved by malignancy. A total of 5 sentinel lymph nodes were harvested with one lymph node harboring micrometastatic disease. The Oncotype DX Breast Recurrence Score was 6. She has received 28 Gy of a prescribed 50 Gy delivered with a 3D conformal radiotherapy plan utilizing opposed tangential portal zarate matched to supraclavicular fossa and PAB ports. Upon review of systems, she denied breast complaints to radiotherapy. She described slight odynophagia. On physical examination, the patient weighed 127 lbs. Her temperature was 97.5 ???F and the blood pressure was 116/64 mmHg. Her pulse was 57 bpm and her respiratory rate was 20. There was no erythema within the treatment zarate of the left breast. Continue left breast and regional lymph node irradiation as planned. Signed by: Dr. Manolo Westbrook 11/07/2021 10:37:19 AM
--- NOTE | 2021-11-13 10:24 | ONCRAD TMN_ITS ---
Radiation Oncology Treatment Management Note Patient Name: Virginia Walsh Date of : 1960 Date of Service: 11/13/2021 Attending Physician: Manolo Westbrook M.D. Virginia Walsh is a 61 year-old white female diagnosed with a pathological stage IA ([id number]) invasive, ductal carcinoma of the left breast. She was evaluated by her primary care physician for a palpable left breast mass. A diagnostic mammography (personally reviewed in [facility]) ordered on July 05, 2021 described an area of architectural distortion within the upper-outer quadrant of the left breast. Ultrasonography confirmed a hypoechoic left breast mass with irregular margins measuring 1.7 cm x 1.5 cm x 1.5 cm at the 2 o'clock position that was 2 cm from the nipple. Axillary lymphadenopathy was not reported. An ultrasound-guided left breast biopsy performed on July 21, 2021 diagnosed a grade 1 invasive ductal carcinoma. The breast cancer prognostic profile identified estrogen receptor positivity (99%), progesterone receptor positivity (99%), and HER-2 negativity (1+; ratio 1.1). A wire localization lumpectomy of the left breast with sentinel lymph node biopsy was performed on September 05, 2021 by Nigel Chew M.D. the pathology report described 1.9 cm, grade 1, invasive ductal carcinoma. All margins were uninvolved by malignancy. A total of 5 sentinel lymph nodes were harvested with one lymph node harboring micrometastatic disease. The Oncotype DX Breast Recurrence Score was 6. She has received 36 Gy of a prescribed 50 Gy delivered with a 3D conformal radiotherapy plan utilizing opposed tangential portal zarate matched to supraclavicular fossa and PAB ports. Upon review of systems, she denied breast complaints to radiotherapy. On physical examination, the patient weighed 124 lbs. Her temperature was 98.1 ???F and the blood pressure was 111/69 mmHg. Her pulse was 62 bpm and her respiratory rate was 16. There was a grade I erythema within the treatment zarate of the left breast. Continue left breast and regional lymph node irradiation as prescribed. Signed by: Dr. Manolo Westbrook 11/13/2021 10:22:42 AM
== END 2021-11-16 23:59 | disposition home or self-care (01) ==
LOC: ONCMED 09:51
PROVIDERS: PCP Electrodiagnostic Medicine; Visit Provider Radiology Radiation Oncology
DX: Z51.0 Encounter for antineoplastic radiation therapy (principal); C50.412 Malignant neoplasm of upper-outer quadrant of left female breast; Z17.0 Estrogen receptor positive status [ER+]; Z79.899 Other long term (current) drug therapy
CPT/HCPCS: 77014; 77295; 77300; 77334; 77336; 77387; 77412

== ENCOUNTER 2021-11-22 06:46 | Outpatient (RCR) | payer MEDICAID, SELFPAY ==
--- NOTE | 2021-11-20 10:27 | ONCRAD TMN_ITS ---
Radiation Oncology Treatment Management Note Patient Name: Virginia Walsh Date of : 1960 Date of Service: 11/20/2021 Attending Physician: Manolo Westbrook M.D. Virginia Walsh is a 61 year-old white female diagnosed with a pathological stage IA ([id number]) invasive, ductal carcinoma of the left breast. She was evaluated by her primary care physician for a palpable left breast mass. A diagnostic mammography (personally reviewed in [facility]) ordered on July 05, 2021 described an area of architectural distortion within the upper-outer quadrant of the left breast. Ultrasonography confirmed a hypoechoic left breast mass with irregular margins measuring 1.7 cm x 1.5 cm x 1.5 cm at the 2 o'clock position that was 2 cm from the nipple. Axillary lymphadenopathy was not reported. An ultrasound-guided left breast biopsy performed on July 21, 2021 diagnosed a grade 1 invasive ductal carcinoma. The breast cancer prognostic profile identified estrogen receptor positivity (99%), progesterone receptor positivity (99%), and HER-2 negativity (1+; ratio 1.1). A wire localization lumpectomy of the left breast with sentinel lymph node biopsy was performed on September 05, 2021 by Nigel Chew M.D. the pathology report described 1.9 cm, grade 1, invasive ductal carcinoma. All margins were uninvolved by malignancy. A total of 5 sentinel lymph nodes were harvested with one lymph node harboring micrometastatic disease. The Oncotype DX Breast Recurrence Score was 6. She has received 46 Gy of a prescribed 50 Gy delivered with a 3D conformal radiotherapy plan utilizing opposed tangential portal zarate matched to supraclavicular fossa and PAB ports. Upon review of systems, she described discomfort in the left supraclavicular fossa. On physical examination, the patient weighed 123 lbs. Her temperature was 98.1 ???F and the blood pressure was 125/71 mmHg. Her pulse was 67 bpm and the respiratory rate was 18. There was a grade II erythema within the treatment zarate of the left breast and lt supraclavicular fossa. Continue left breast and regional lymph node irradiation as planned. Signed by: Dr. Manolo Westbrook 11/20/2021 10:25:06 AM
--- NOTE | 2021-11-22 13:30 | N.ONRD TS_ITS ---
Radiation OncologyTreatment Summary Patient Name: Virginia Walsh Date of : 1960 Date of Service: 11/22/2021 Attending Physician: Manolo Westbrook M.D. Virginia Walsh has completed adjuvant breast radiotherapy for the management of a pathological stage IA ([id number]) invasive, ductal carcinoma of the left breast. She was evaluated by her primary care physician for a palpable left breast mass. A diagnostic mammography (personally reviewed in [facility]) ordered on July 05, 2021 described an area of architectural distortion within the upper-outer quadrant of the left breast. Ultrasonography confirmed a hypoechoic left breast mass with irregular margins measuring 1.7 cm x 1.5 cm x 1.5 cm at the 2 o'clock position that was 2 cm from the nipple. Axillary lymphadenopathy was not reported. An ultrasound-guided left breast biopsy performed on July 21, 2021 diagnosed a grade 1 invasive ductal carcinoma. The breast cancer prognostic profile identified estrogen receptor positivity (99%), progesterone receptor positivity (99%), and HER-2 negativity (1+; ratio 1.1). A wire localization lumpectomy of the left breast with sentinel lymph node biopsy was performed on September 05, 2021 by Nigel Chew M.D. the pathology report described 1.9 cm, grade 1, invasive ductal carcinoma. All margins were uninvolved by malignancy. A total of 5 sentinel lymph nodes were harvested with one lymph node harboring micrometastatic disease. The Oncotype DX Breast Recurrence Score was 6. Daily radiotherapy was administered between the dates of October 18, 2021 through November 22, 2021. A prescribed dose of 50 Gy was delivered in 25 fractions encompassing 36 elapsed days. The left breast and regional lymph nodes were treated utilizing a 3-dimensional conformal radiotherapy plan with an opposed tangential portal field design matched to a supraclavicular and a posterior axillary boost zarate. The medial tangential field utilized a 308??? gantry angle with an associated collimator angle of 0???. The field size measured 1.3 cm x 9.1 cm within the X-direction and 16.4 cm x 0 cm within the Y-direction. The measured SSD was 93.4 cm with the field delivering 112 monitor units. A photon energy of 6 MV was prescribed. The lateral tangential field employed a gantry angle of 130??? and an associated collimator angle of 0???. The field size measured 9.1 cm x 1.3 cm within X-direction and 16.4 cm x 0 cm within the Y-direction. The SSD measured 89.8 cm with the field administering 106 monitor units. A photon energy of 15 MV was dispensed. A supplemental port with multi-leaf collimation was designed allocating 5 monitor units. The supraclavicular portal field utilized an GRAMAJO port with a gantry angle of 345??? and an associated collimator angle 0???. The port size measured 8.5 cm x 4.3 cm within the X-direction and 0 cm x 7.1 cm within the Y-direction. The measured SSD was 94.5 cm with the field distributing 201 monitor units. High-energy photons were allocated. Supplemental zarate with multi-leaf collimation were designed that apportioned 19 MU, 10 MU, and 9 MU, respectively. The posterior axillary boost field applied a gantry angle of 180??? with an associated collimator angle of 0???. The port size measured 4.3 cm x 8.5 cm within the X-direction and 0 cm x 5.6 cm within the Y-direction. The measured SSD was 88.3 cm with the port transmitting 6 monitor units. A photon energy of 15 MV was disbursed. All treatments were performed with the [employer] linear accelerator with an isocentric technique. ???The dose was calculated by Anisotropic Analytic Algorithm with the plan normalized to deliver 95% of the prescription dose to 95% of the planning target volume. Signed by: Manolo Westbrook 12/21/2021 3:17:52 PM
== END 2021-12-16 23:59 | disposition home or self-care (01) ==
LOC: ONCMED 06:46
PROVIDERS: PCP Electrodiagnostic Medicine; Visit Provider Radiology Radiation Oncology
DX: Z51.0 Encounter for antineoplastic radiation therapy (principal); C50.412 Malignant neoplasm of upper-outer quadrant of left female breast; Z17.0 Estrogen receptor positive status [ER+]; Z79.899 Other long term (current) drug therapy
CPT/HCPCS: 77336; 77387; 77412

== ENCOUNTER 2021-12-22 09:56 | Oncology outpatient (recurring) (ONCR) | payer MEDICAID, SELFPAY ==
--- NOTE | 2021-12-22 10:47 | ONCRAD EPV_ITS ---
Radiation Oncology Follow-Up Note Patient Name: Virgiina Walsh Date of : 1960 Date of Service: 12/22/2021 Attending Physician: Manolo Westbrook M.D. Virginia Walsh returned to my office this morning for a routinely scheduled post-radiotherapy follow-up appointment. She completed adjuvant breast radiotherapy in November for the management of a pathological stage IA ([id number]) invasive, ductal carcinoma of the left breast. She was evaluated by her primary care physician for a palpable left breast mass. A diagnostic mammography (personally reviewed in [facility]) ordered on July 05, 2021 described an area of architectural distortion within the upper-outer quadrant of the left breast. Ultrasonography confirmed a hypoechoic left breast mass with irregular margins measuring 1.7 cm x 1.5 cm x 1.5 cm at the 2 o'clock position that was 2 cm from the nipple. Axillary lymphadenopathy was not reported. An ultrasound-guided left breast biopsy performed on July 21, 2021 diagnosed a grade 1 invasive ductal carcinoma. The breast cancer prognostic profile identified estrogen receptor positivity (99%), progesterone receptor positivity (99%), and HER-2 negativity (1+; ratio 1.1). A wire localization lumpectomy of the left breast with sentinel lymph node biopsy was performed on September 05, 2021 by Nigel Chew M.D. the pathology report described 1.9 cm, grade 1, invasive ductal carcinoma. All margins were uninvolved by malignancy. A total of 5 sentinel lymph nodes were harvested with one lymph node harboring micrometastatic disease. The Oncotype DX Breast Recurrence Score was 6. Daily radiotherapy was administered between the dates of October 18, 2021 through November 22, 2021. A prescribed dose of 50 Gy was delivered in 25 fractions encompassing 36 elapsed days. On review of systems, she did not report any breast complaints. On physical examination, the patient weighed 123 lbs. The temperature was 97.3???F and her blood pressure was 109/64 mmHg. The pulse was 66 bpm and the respiratory rate was 20 breaths per minute. Examination of the left breast did not reveal any significant erythema. In summary, Ms. Walsh returned for a routine post radiotherapy follow-up. There were no sequelae from treatment. She will continue follow-up as scheduled with her medical oncologist. Signed by: Manolo Westbrook 12/22/2021 10:45:58 AM
== END 2022-01-16 23:59 | disposition home or self-care (01) ==
PROVIDERS: PCP Electrodiagnostic Medicine; Visit Provider Radiology Radiation Oncology
DX: C50.812 Malignant neoplasm of overlapping sites of left female breast (principal); Z17.0 Estrogen receptor positive status [ER+]; Z79.899 Other long term (current) drug therapy; Z92.3 Personal history of irradiation
CPT/HCPCS: 99024

== ENCOUNTER → 2022-01-01 09:48 | Outpatient (BNVA) | payer MEDICAID, SELFPAY | PROVIDERS: PCP Electrodiagnostic Medicine; Referring Provider Student in an Organized Health Care Education/Training Program; Visit Provider Surgery | DX: R22.2 Localized swelling, mass and lump, trunk (principal); C50.412 Malignant neoplasm of upper-outer quadrant of left female breast | CPT/HCPCS: 99214 ==

== ENCOUNTER 2022-01-11 12:35 | Oncology outpatient (recurring) (ONCR) | payer MEDICAID, SELFPAY ==
[2022-01-11] MEDS: denosumab 60 mg SDV SUBCUT (13:51)
== END 2022-01-16 23:59 | disposition home or self-care (01) ==
LOC: ONCMED 12:36
PROVIDERS: PCP Electrodiagnostic Medicine; Referring Provider Surgery; Visit Provider Nurse Practitioner
DX: C50.812 Malignant neoplasm of overlapping sites of left female breast (principal); Z17.0 Estrogen receptor positive status [ER+]; M81.0 Age-related osteoporosis without current pathological fracture; E55.9 Vitamin D deficiency, unspecified; M85.80 Other specified disorders of bone density and structure, unspecified site; Z79.818 Long term (current) use of other agents affecting estrogen receptors and estrogen levels; Z79.899 Other long term (current) drug therapy
CPT/HCPCS: 96372; 99214; J0897

== ENCOUNTER 2022-02-01 05:47 | Day surgery (SDC) | payer MEDICAID, SELFPAY ==
[2022-01-31 13:54] VITALS: BMI 21.4
[2022-02-01 06:08] VITALS: BP 108/66; PULSE 56; RESP 16; TEMP 36.6; O2SAT 96
[2022-02-01] MEDS: sodium chloride 0.9% 1,000 ML 30 ML IV (06:13)
--- NOTE | 2022-02-01 06:32 | P.ANESASSM_ITS ---
Pre-Anesthetic Assessment Height/Weight: Height 1.63 m Weight 56.699 kg Temp Pulse Resp BP Pulse Ox 97.8 F 56 L 16 108/66 96 02/01/22 06:08 02/01/22 06:08 02/01/22 06:08 02/01/22 06:08 02/01/22 06:08 Preop Diagnosis: Mass on the back Operation Date: 02/01/22 07:00 Proposed Procedures p excision of back mass 10159(Not Applicable) - Nigel Chew MD Familial anesthetic complications: none Was Beta Dorie taken within 24 hours: N/A Was Clonidine taken within 24 hours: N/A Last intake: Intake Last Liquid Date 01/31/22 Last Liquid Time 17:00 Last Solid Date 01/31/22 Last Solid Time 21:00 Social Tobacco (vaping) Airway Submandibular: within normal limits Cervical ROM: within normal limits Mallampati: Class II Dentition: partials Pulmonary None reported CV/HEM None reported None reported Hepatic None reported GI Gastroesophageal Reflux Disease Metabolic None reported Musc/skel None reported Neuropsych None reported undergoing radiation for breast cancer of left breast 5 rounds of radiation complete no chemo. Anesthetic Plan ASA status: 3 Anesthesia: MAC Medications/Allergies Home Medications Medication Instructions Recorded Confirmed Last Taken Type clonazepam 0.5 mg tablet 0.5 mg PO DAILY 03/18/20 02/01/22 01/31/22 History paroxetine HCl 20 mg tablet 20 mg PO DAILY 03/18/20 02/01/22 01/31/22 History anastrozole 1 mg tablet 1 mg PO DAILY 01/11/22 02/01/22 01/31/22 History calcium carbonate 600 mg calcium 1,200 mg PO DAILY tab 01/11/22 02/01/22 01/31/22 History (1,500 mg) tablet cholecalciferol (vitamin D3) 25 25 mcg PO DAILY 01/11/22 02/01/22 01/31/22 History mcg (1,000 unit) chewable tablet zinc oxide-zinc citrate 50 mg 50 mg PO DAILY tab 01/11/22 02/01/22 01/31/22 History tablet denosumab 60 mg/mL subcutaneous 60 mg SUBCUT DIRECTED 01/31/22 01/31/22 01/11/22 History syringe (Prolia) Allergies Allergy/AdvReac Type Severity Reaction Status Date / Time No Known Allergies Allergy Verified 02/01/22 06:06 [facility] Anesthesia Medical History Breast cancer, left breast Grade 1 invasive ductal carcinoma of the left breast, stage IA (T1c, pN1mi, M0), ER/LA positive, HER-2/deaan negative, and Oncotype low risk with recurrence score 6. Surgical History History of colonoscopy 2019 History of dental surgery Hx of carpal tunnel repair Hx of hysterectomy S/P lumpectomy, left breast [place] lymph node biopsy Family History (Updated 01/11/22 @ 12:52 by Sania Mathur LPN) Grandfather Cancer breast cancer Grandmother Cancer Breast cancer Maternal -Lung and colon cancer Family/Other Cancer Uncles - colon cancer Lung disease Aunt Father Hypertension Mother Hypertension Denies family history of Diabetes CAD (coronary artery disease) Clotting disorder Dementia Hyperlipidemia Psychiatric illness Chronic kidney disease (CKD) Suicide Anesthesia complication Bleeding disorder Stroke Social History Smoking and tobacco status: former smoker (Vaping) Smoking risk assessment/counseling performed?: Yes Alcohol intake: never Caregiver/support person: No Lives independently: Yes Household members: none Marital status: Legally Current occupational status: retired History of recent travel: No Current gender identity: Female Data Anesthesia Cardiac Studies: No Data to Display
--- NOTE | 2022-02-01 06:51 | P.HP_ITS ---
Same Day Surgery H&P Indication for Procedure/HPI DATE OF PROCEDURE: February 01, 2022 CHIEF COMPLAINT/INDICATIONFOR SURGICAL PROCEDURE: excision mass on the back PREOP DIAGNOSIS: Mass on the back PLANNED PROCEDURE: Operation Date: 02/01/22 07:00 Proposed Procedures p excision of back mass 96938(Not Applicable) - iNgel Chew MD Medications/Allergies* Home Medications Medication Instructions Recorded Confirmed Type clonazepam 0.5 mg tablet 0.5 mg PO DAILY 03/18/20 02/01/22 History paroxetine HCl 20 mg tablet 20 mg PO DAILY 03/18/20 02/01/22 History anastrozole 1 mg tablet 1 mg PO DAILY 01/11/22 02/01/22 History calcium carbonate 600 mg calcium 1,200 mg PO DAILY tab 01/11/22 02/01/22 History (1,500 mg) tablet cholecalciferol (vitamin D3) 25 25 mcg PO DAILY 01/11/22 02/01/22 History mcg (1,000 unit) chewable tablet zinc oxide-zinc citrate 50 mg 50 mg PO DAILY tab 01/11/22 02/01/22 History tablet denosumab 60 mg/mL subcutaneous 60 mg SUBCUT DIRECTED 01/31/22 01/31/22 History syringe (Prolia) Allergies/Adverse Reactions Allergy/AdvReac Type Severity Reaction Status Date / Time No Known Allergies Allergy Verified 02/01/22 06:06 Pertinent History/Comorbid Conditions* Medical History (Updated 12/11/21 @ 12:50 by Joaquin Garcia RN) Breast cancer, left breast Grade 1 invasive ductal carcinoma of the left breast, stage IA (T1c, pN1mi, M0), ER/TX positive, HER-2/deana negative, and Oncotype low risk with recurrence score 6. Surgical History (Updated 09/20/21 @ 08:25 by Nigel Chew MD) History of colonoscopy 2019 History of dental surgery Hx of carpal tunnel repair Hx of hysterectomy S/P lumpectomy, left breast [place] lymph node biopsy Family History (Updated 01/11/22 @ 12:52 by Sania Mathur LPN) Lung disease Family/Other Aunt Cancer Grandfather breast cancer Grandmother Breast cancer Maternal -Lung and colon cancer Family/Other Uncles - colon cancer Hypertension Father Mother Denies family history of Diabetes CAD (coronary artery disease) Clotting disorder Dementia Hyperlipidemia Psychiatric illness Chronic kidney disease (CKD) Suicide Anesthesia complication Bleeding disorder Stroke Social History Smoking and tobacco status: former smoker (Vaping) Smoking risk assessment/counseling performed?: Yes Alcohol intake: never Caregiver/support person: No Lives independently: Yes Household members: none Marital status: Legally Current occupational status: retired History of recent travel: No Current gender identity: Female Pertinent Exam Findings alert, oriented x 3 and regular rate & rhythm Recommendations Surgery/Procedure today Coding Level of Care Code Acute Deployment Technician for Lottie Ruiz
[2022-02-01] MEDS: lidocaine 2% INJ 20 mL INJECTION (07:11)
--- NOTE | 2022-02-01 07:34 | PM.OP ---
Operative Report Date of procedure: February 01, 2022 Pre-op diagnosis: Subcutaneous mass on the back Post-op diagnosis: Intramuscular lipoma measuring 5 x 4 centimeter Procedure done: Excision of lipoma left upper back Specimens removed/disposition: Lipoma left upper back Surgeon: Nigel Chew Anesthesia: MAC Condition: stable Disposition: PACU Procedure: The patient was taken to the operating room and placed in right lateral position under MAC. The area around the palpable mass was prepped and draped in sterile manner. 1% lidocaine with 0.25% Marcaine was infiltrated around the palpable mass and a 4 cm transverse incision was made using a 15 blade. The subcutaneous tissue was divided using electrocautery, the mass was palpable deep to the muscle and therefore the muscular fascia was divided using electrocautery and the muscle fibers were using hemostats. The lipoma was dissected free from the surrounding muscle and underlying fascia and sent to pathology. The wound was irrigated with saline, hemostasis ensured and muscular fascia approximated using a running 3-0 Vicryl suture and skin was closed using running subcuticular 4-0 Monocryl suture and Dermabond. The patient was transferred to recovery room in stable condition.
[2022-02-01 07:35] VITALS: BP 106/72; PULSE 62; RESP 12; TEMP 36.8; O2SAT 100
[2022-02-01 07:40] VITALS: BP 107/61; PULSE 58; RESP 16; O2SAT 100
[2022-02-01 07:46] VITALS: BP 111/61; PULSE 53; RESP 16; TEMP 36.2; O2SAT 98
[2022-02-01 07:49] VITALS: BP 104/67; PULSE 56; RESP 16; TEMP 36.6; O2SAT 98
[2022-02-01 08:03] VITALS: BP 110/70; PULSE 60; RESP 16; TEMP 36.6; O2SAT 99
--- NOTE | 2022-02-01 16:36 | ANE.PACU2 ---
Inpatient post-anesthesia follow up: Airway intact: Yes Vital signs: Temperature 98 F Pulse Rate 60 Respiratory Rate 16 Blood Pressure 110/70 Pulse Oximetry 99 Oxygen Delivery Me thod Room Air Oxygen Flow Rate 6 Fraction of Inspir ed Oxygen Hydration adequate: Yes Nausea and vomiting: No Pain level: 1 Mental status: Baseline
== END 2022-02-01 08:35 | disposition home or self-care (01) ==
PROVIDERS: PCP Electrodiagnostic Medicine; Visit Provider Surgery
PROC: (CPT 11406; principal; 2022-02-01 07:00)
DX: D17.1 Benign lipomatous neoplasm of skin and subcutaneous tissue of trunk (principal); K21.9 Gastro-esophageal reflux disease without esophagitis; Z85.3 Personal history of malignant neoplasm of breast; Z87.891 Personal history of nicotine dependence
CPT/HCPCS: 11406; 12032; 88304; J2704; J3010; J3490; J7030

== ENCOUNTER → 2022-02-09 08:26 | Outpatient (BNVA) | payer MEDICAID, SELFPAY | PROVIDERS: PCP Electrodiagnostic Medicine; Visit Provider Surgery | DX: C50.412 Malignant neoplasm of upper-outer quadrant of left female breast (principal); Z98.890 Other specified postprocedural states | CPT/HCPCS: 99214 ==

== ENCOUNTER 2022-03-14 12:26 | Oncology outpatient (recurring) (ONCR) | payer MEDICAID, SELFPAY ==
[2022-03-14 13:30] LABS: Basophils % 0.3 %; Eosinophils % 0.5 %; Hematocrit 38.4 % (37.0-47.0); Lymphocytes # 1.1 10^3/uL (0.8-4.8); Lymphocytes % 17.9 %; Mean Corpuscular HGB Conc 33.9 g/dL (30.0-36.0); Mean Corpuscular Volume 88.5 fl (81-99); Mean Platelet Volume 10.3 fL (7.4-10.4); Monocytes # 0.5 10^3/uL (0.2-0.9); Monocytes % 8.5 %; Neutrophils # 4.29 10^3/uL (1.8-7.7); Neutrophils % 72.6 %; Nucleated Red Blood Cells % 0 %; Platelet Count 225 10^3/cmm (130-400); Red Blood Count 4.34 10^6/uL (4.1-5.3); Red Cell Distribution Width 12.2 % (12.1-15.1); White Blood Count 5.9 10^3/uL (4.0-10.0)
[2022-03-14 13:53] LABS: Alanine Aminotransferase 18 U/L (0-33); Albumin Level 3.9 g/dL (3.5-5.2); Alkaline Phosphatase 73 IU/L (35-105); Aspartate Amino Transferase 20 U/L (0-32); Blood Urea Nitrogen 19 mg/dL (6-20); Calcium 9.1 mg/dL (8.5-10.5); Carbon Dioxide 27 mmol/L (22-29); Glomerular Filtration Rate 102.3 mL/min (90-130); Glucose 92 mg/dL (65-115); Potassium 4.3 mmol/L (3.5-5.1); Total Bilirubin 0.2 mg/dL (0.15-1.2); Total Protein 5.9 g/dL (6.6-8.7)
[2022-03-14 15:11] LABS: Anion Gap 13.3 (5-19)
[2022-03-14 15:12] LABS: Chloride 102 mmol/L (98-107); Osmolality Calculated 288 mOsm/kg (285-295); Sodium 138 mmol/L (136-145)
[2022-03-14 15:27] LABS: 25 Hydroxy Vitamin D 44 ng/mL (30-100)
== END 2022-03-18 23:59 | disposition home or self-care (01) ==
PROVIDERS: Nurse Practitioner; PCP Electrodiagnostic Medicine; Visit Provider Internal Medicine Medical Oncology
DX: C50.412 Malignant neoplasm of upper-outer quadrant of left female breast (principal); M85.80 Other specified disorders of bone density and structure, unspecified site; Z92.3 Personal history of irradiation; Z79.811 Long term (current) use of aromatase inhibitors
CPT/HCPCS: 80053; 82306; 85025; 99214

== ENCOUNTER 2022-08-24 07:50 | Oncology outpatient (recurring) (ONCR) | payer MEDICAID, SELFPAY | END 2022-09-18 23:59 | disposition home or self-care (01) | LOC: ONCMED 07:51 | PROVIDERS: PCP Electrodiagnostic Medicine; Visit Provider Internal Medicine Medical Oncology | DX: Z17.0 Estrogen receptor positive status [ER+] (principal); Z92.3 Personal history of irradiation; C50.412 Malignant neoplasm of upper-outer quadrant of left female breast; Z79.811 Long term (current) use of aromatase inhibitors | CPT/HCPCS: 99214 ==

== ENCOUNTER 2022-12-06 09:27 | Oncology outpatient (recurring) (ONCR) | payer MEDICAID, SELFPAY | END 2022-12-16 23:59 | disposition home or self-care (01) | LOC: ONCMED 09:27 | PROVIDERS: PCP Electrodiagnostic Medicine; Visit Provider Internal Medicine Medical Oncology | DX: C50.412 Malignant neoplasm of upper-outer quadrant of left female breast (principal); Z17.0 Estrogen receptor positive status [ER+]; Z92.3 Personal history of irradiation; Z79.811 Long term (current) use of aromatase inhibitors; R53.0 Neoplastic (malignant) related fatigue | CPT/HCPCS: 99214 ==

== ENCOUNTER 2022-12-07 10:37 | Outpatient (CLI) | payer MEDICAID, SELFPAY ==
--- NOTE | 2022-12-07 11:00 | MM_ITS ---
WS: [id number] DIAGNOSTIC BILATERAL DIGITAL BREAST TOMOSYNTHESIS MAMMOGRAPHY WITH CAD HISTORY: ANNUAL - HX BREAST CA COMPARISON: 07/05/2021 TECHNIQUE: Bilateral craniocaudad, mediolateral oblique, and mediolateral views are submitted with to mosaraseli and SM. Computer aided detection utilized. Breast composition: The breasts are heterogeneously dense, which may obscure small masses. Postsurgic al changes with numerous clips in the upper-outer quadrant of the LEFT breast. Postoperative changes. No recurrent mass and no calcifications. RIGHT axillary biopsy clips are also noted from lymph node resection. There is a focal asymmetry in the posterior medial RIGHT breast which is similar to 2020. MM/[id number] IMPRESSION: BI-RADS: 2-Benign FOLLOW UP: 1 Year Follow-up
== END 2022-12-07 10:38 | disposition home or self-care (01) ==
LOC: RAD 10:39
PROVIDERS: PCP Electrodiagnostic Medicine; Visit Provider Internal Medicine Medical Oncology
DX: Z12.31 Encounter for screening mammogram for malignant neoplasm of breast (principal); Z85.3 Personal history of malignant neoplasm of breast
CPT/HCPCS: 77062; G0279

== ENCOUNTER 2023-07-05 09:58 | Oncology outpatient (recurring) (ONCR) | payer MEDICAID, SELFPAY ==
[2023-07-05 11:05] LABS: Basophils % 0.4 %; Eosinophils # 0.1 10^3/uL (0.0-0.8); Eosinophils % 1.2 %; Hematocrit 42.6 % (36-47); Lymphocytes % 19.5 %; Mean Corpuscular HGB Conc 32.4 g/dL (30-55); Mean Corpuscular Hemoglobin 30.3 pg (27-33); Mean Corpuscular Volume 93.6 fl (85-98); Mean Platelet Volume 9.7 fL (7.4-10.4); Monocytes # 0.5 10^3/uL (0.2-0.9); Monocytes % 9.2 %; Neutrophils # 3.46 10^3/uL (1.8-7.7); Neutrophils % 69.5 %; Nucleated Red Blood Cells % 0 %; Platelet Count 242 10^3/cmm (157-399); Red Blood Count 4.55 10^6/uL (3.85-5.65); Red Cell Distribution Width 12.9 % (12.1-15.1); White Blood Count 4.98 10^3/uL (3.29-11.43)
[2023-07-05 11:26] LABS: Alanine Aminotransferase 22 U/L (0-33); Alkaline Phosphatase 95 U/L (35-105); Aspartate Amino Transferase 21 U/L (0-32); Blood Urea Nitrogen 10 mg/dL (8-23); Carbon Dioxide 28 mmol/L (22-29); Chloride 108 mmol/L (98-107); Globulin 1.9 g/dL (1.3-4.6); Glomerular Filtration Rate 101.6 mL/min (90-130); Glucose 86 mg/dL (65-115); Osmolality Calculated 294 mOsm/kg (285-295); Sodium 143 mmol/L (136-145); Total Bilirubin 0.2 mg/dL (0.15-1.2); Total Protein 5.9 g/dL (6.6-8.7)
[2023-07-05 11:29] LABS: Anion Gap 11.1 (5-19); Potassium 4.1 mmol/L (3.5-5.1)
[2023-07-05 11:41] LABS: 25 Hydroxy Vitamin D 36 ng/mL (30-100)
== END 2023-07-18 23:59 | disposition home or self-care (01) ==
PROVIDERS: Nurse Practitioner Family; PCP Electrodiagnostic Medicine; Visit Provider Internal Medicine Medical Oncology
DX: C50.412 Malignant neoplasm of upper-outer quadrant of left female breast (principal); Z17.0 Estrogen receptor positive status [ER+]; Z92.3 Personal history of irradiation; Z79.811 Long term (current) use of aromatase inhibitors
CPT/HCPCS: 36415; 80053; 82306; 85025; 99214

== ENCOUNTER 2023-10-10 12:47 | Outpatient (CLI) | payer MEDICAID, SELFPAY ==
--- NOTE | 2023-10-10 13:00 | XR_ITS ---
WS: [id number] DEXA (DUAL ENERGY X-RAY ABSORPTIOMETRY) Bone mineral density was performed using a Optaros machine. HISTORY: on aromatase inhibitor, osteopenia COMPARISON: 10/09/2021 Lumbar spine BMD (L1-L4): 0.993 g/cm2 T score: -1.6 Z score: 0.1 Total hip BMD: Left: 0.659 g/cm2. T score: -2.8 Z score: -1.5 Right: 0.723 g/cm2. T score: -2.3 Z score: -1.0 10 year probability of a major osteoporotic fracture is 21.4%. Compared to the prior study from 10/09/2021. Lumbar spine bone mineral density has decreased by 2.3%. Bilateral hips bone mineral density has decreased by 5.9%. IMPRESSION: OSTEOPOROSIS based upon the WHO classification for females. Significant decrease in bone mineral density within the lumbar spine and hips.
== END 2023-10-10 12:48 | disposition home or self-care (01) ==
LOC: RAD 12:47
PROVIDERS: PCP Electrodiagnostic Medicine; Visit Provider Nurse Practitioner Family
DX: C50.412 Malignant neoplasm of upper-outer quadrant of left female breast (principal); M85.80 Other specified disorders of bone density and structure, unspecified site; Z78.0 Asymptomatic menopausal state
CPT/HCPCS: 77080

== ENCOUNTER 2024-01-01 09:46 | Oncology outpatient (recurring) (ONCR) | payer MEDICAID, SELFPAY ==
--- NOTE | 2024-01-01 10:00 | MM_ITS ---
WS: [id number] DIAGNOSTIC BILATERAL DIGITAL BREAST TOMOSYNTHESIS MAMMOGRAPHY WITH CAD HISTORY: breast cancer COMPARISON: 07/05/2021, 12/07/2022 TECHNIQUE: Bilateral craniocaudad, mediolateral oblique, and mediolateral views are submitted with to mosynthesis and SM. Computer aided detection utilized. Breast composition: The breasts are extremely dense, which lowers the sensitivity of mammography. Jeni gical lumpectomy site with clips in the upper outer quadrant LEFT breast. No suspicious calcification s or new area of architectural distortion. MM/[id number] IMPRESSION: BI-RADS: 2-Benign FOLLOW UP: 1 Year Follow-up
== END 2024-01-17 23:59 | disposition home or self-care (01) ==
PROVIDERS: PCP Electrodiagnostic Medicine; Visit Provider Internal Medicine Medical Oncology
DX: C50.412 Malignant neoplasm of upper-outer quadrant of left female breast (principal)
CPT/HCPCS: 77062; G0279